=== PATIENT | female | born 1955 | race Caucasian/White ===

== ENCOUNTER 2022-07-30 08:37 | Outpatient (REF) | payer MEDICARE, MEDICAID, SELFPAY ==
--- NOTE | ~2022-07-30 | XR_ITS ---
EXAMINATION: XR PELVIS XR HIP, LEFT CLINICAL INFORMATION: Pain. COMPARISON: None available. TECHNIQUE: AP view of the pelvis. AP and frog-leg lateral views of the left hip. FINDINGS: Bony alignment and mineralization are normal. The acetabular joint spaces are well-maintained. There is moderate peripheral osteophyte formation of the articular surfaces of the left hip, and mild of the right hip. The femoral heads are smooth. There is no acute fracture or dislocation. 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 The sacroiliac joints are symmetric and well-maintained. There are pelvic phleboliths. No foreign body is seen. XR/XR hip LT min 2V IMPRESSION: 1. 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 2. No acute fracture or dislocation is seen. 3. 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
--- NOTE | ~2022-07-30 | US_ITS ---
EXAMINATION: US ABDOMEN COMPLETE CLINICAL INFORMATION: History of liver and renal cyst. COMPARISON: None available. TECHNIQUE: Real-time imaging of the abdominal viscera. FINDINGS: PANCREAS: Normal. ABDOMINAL AORTA: The proximal, mid, and distal segments are normal in caliber. INFERIOR VENA CAVA: Visualized portions are normal. LIVER: The liver is normal in size. The liver contour is normal. Parenchymal echogenicity is normal. Multiple benign-appearing hepatic cysts are present with the largest on the right measuring 0.9 cm and the largest on the left measuring 1.2 cm. No worrisome solid hepatic masses are seen. There is no intrahepatic biliary duct dilatation seen. GALLBLADDER: The gallbladder is physiologically distended without evidence of stones, sludge, polyps, wall thickening or pericholecystic fluid. COMMON BILE DUCT: Normal in caliber measuring 0.4 cm in diameter. RIGHT KIDNEY: No hydronephrosis. No renal calculi or focal parenchymal lesions. The kidney measures 9.1 cm in maximum dimension. LEFT KIDNEY: No hydronephrosis. No renal calculi or focal parenchymal lesions. The kidney measures 10.1 cm in maximum dimension. SPLEEN: Normal. The spleen measures 8.0 cm in maximum dimension. FREE FLUID: None. US/US abdomen complete IMPRESSION: Benign hepatic cysts.
--- NOTE | ~2022-07-30 | XR_ITS ---
EXAMINATION: XR PELVIS XR HIP, LEFT CLINICAL INFORMATION: Pain. COMPARISON: None available. TECHNIQUE: AP view of the pelvis. AP and frog-leg lateral views of the left hip. FINDINGS: Bony alignment and mineralization are normal. The acetabular joint spaces are well-maintained. There is moderate peripheral osteophyte formation of the articular surfaces of the left hip, and mild of the right hip. The femoral heads are smooth. There is no acute fracture or dislocation. 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 The sacroiliac joints are symmetric and well-maintained. There are pelvic phleboliths. No foreign body is seen. XR/XR pelvis 1-2V IMPRESSION: 1. 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 2. No acute fracture or dislocation is seen. 3. 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
--- NOTE | ~2022-07-30 | US_ITS ---
EXAMINATION: US PELVIS CLINICAL INFORMATION: Pelvic pain. COMPARISON: None available. TECHNIQUE: Ultrasound of the pelvis is performed using both transabdominal and transvaginal transducers along with Doppler. Transvaginal imaging is performed due to inadequate visualization transabdominally. FINDINGS: UTERUS: The uterus is anteverted and measures 7.4 x 2.5 x 3.1 cm. The double wall endometrial thickness is 0.3 mm. The uterus is smooth in contour and has normal myometrial echogenicity. A single small right-sided mural fibroid noted measuring 1.2 x 1.1 x 1.3 cm near the fundus. NABOTHIAN CYSTS ARE PRESENT IN THE CERVIX. ADNEXA: Both ovaries are visualized. There is normal color flow to the adnexa. There is no ovarian torsion. There is no pelvic ascites or fluid collection. Right ovary measures 1.7 x 1.0 x 1.2 cm for a volume of 1.1 mL and appears normal. Left ovary measures 6.5 x 4.4 x 5.4 cm for a volume of 80.1 mL which includes a benign simple 6.0 x 3.9 x 4.6 cm ovarian cyst. US/US pelvic and transvaginal IMPRESSION: A cause for the patient's pelvic pain has not been found. Incidental note made of a small right-sided uterine fibroid and a benign simple left ovarian cyst. Given its size in a postmenopausal patient, a follow-up ultrasound is recommended in 6-12 months.
[2022-07-30 10:10] LABS: MANUAL DIFF FLAG NO
[2022-07-30 10:48] LABS: Basophils Absolute Auto 0.1 X10*3/uL (0.0-0.2); Eosinophils Absolute Auto 0.2 X10*3/uL (0.0-0.4); Eosinophils Percent Auto 2.8 % (0-4); Hematocrit 40.1 % (37.0-47.0); Imm Gran Abs Auto 0.01 X10*3/uL (0.00-0.03); Imm Gran Pct Auto 0.2 % (0.0-0.4); Lymphocytes Absolute Auto 2.1 X10*3/uL (1.2-4.9); Lymphocytes Percent Auto 35.6 % (20-40); Mean Corpuscular HGB Conc 32.4 g/dl (31.0-35.0); Mean Corpuscular Hemoglobin 32.3 pg (27.0-33.0); Mean Corpuscular Volume 99.8 fL (80.0-98.0); Mean Platelet Volume 10.6 fL (9.4-12.3); Monocytes Absolute Auto 0.7 X10*3/uL (0.1-1.2); Monocytes Percent Auto 11.2 % (2-11); Neutrophils Absolute Auto 2.9 x10*3/uL (2.0-8.3); Neutrophils Percent Auto 49.2 % (45-73); Platelet Count 321 X10*3/uL (160-400); Red Blood Count 4.02 X10*6/uL (4.20-5.50); Red Cell Distribution Width 12.6 % (11.0-16.0); White Blood Count 5.8 X10*3/uL (4.8-10.8)
[2022-07-30 11:33] LABS: Alanine Aminotransferase 17 U/L (0-31); Albumin Level 4.1 g/dL (3.5-5.0); Alkaline Phosphatase 59 U/L (39-117); Anion Gap 14 (12-20); Aspartate Amino Transferase 29 U/L (5-31); Bilirubin Total 0.9 mg/dL (0.0-1.0); Blood Urea Nitrogen 15 mg/dL (9-16); Calcium 9.3 mg/dL (8.4-10.2); Carbon Dioxide 27 mmol/L (22-29); Chloride 103 mmol/L (96-108); Cholesterol 236 mg/dL; Estimated Glomerular Filt Rate > 60; Glucose Fasting 98 mg/dL (60-99); HDL Cholesterol 106 mg/dL; LDL Cholesterol Calculated 120 mg/dl; Potassium 3.7 mmol/L (3.3-5.1); Sodium 140 mmol/L (135-145); Triglycerides 53 mg/dL
[2022-07-30 11:54] LABS: Free T4 (Free Thyroxine) 1.09 ng/dL (0.71-1.85); Thyroid Stimulating Hormone 1.35 uIU/mL (0.32-4.0)
== END 2022-07-30 08:38 | disposition home or self-care (01) ==
LOC: HO.US 08:37
PROVIDERS: PCP Internal Medicine; Visit Provider Internal Medicine
DX: M25.552 Pain in left hip (principal); E78.5 Hyperlipidemia, unspecified; R53.83 Other fatigue; R10.9 Unspecified abdominal pain
CPT/HCPCS: 36415; 72170; 73502; 76700; 76830; 76856; 80053; 80061; 84439; 84443; 85025

== ENCOUNTER 2024-12-05 09:51 | Outpatient (AMB) | payer MEDICARE, MEDICAID, SELFPAY ==
--- NOTE | 2024-12-05 09:58 | MHC.PC.OV ---
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 Accompanied by: Self / Same As Patient Allergies No Known Allergies Allergy (Verified 12/05/24 10:02) Tobacco use date assessed: 12/05/24 Fall risk assessment: No Falls in past year Last assessed Fall Risk: 12/05/24 Dental Screening Dental Screen Date: 12/05/24 Did you have a dental visit in the last 12 months?: Yes Did you have a dental problem in the last 6 months where you did not have access to dental care?: No Was dental information given to patient?: Patient has dentist [facility] Medical History (Updated 12/05/24 @ 11:10 by Carmine Rodriguez MD) Hyperlipidemia Uterine fibroid Surgical History History of colonoscopy (~05/19/24) Family History (Updated 12/05/24 @ 10:14 by CHRISSIE Aranda) Father Smoker Alcohol abuse Throat cancer Mother Smoker Social History (Updated 12/05/24 @ 10:15 by CHRISSIE Aranda) Housing: House Alcohol intake: current Alcohol intake frequency: a few times a week Patient Tobacco Use Status: Former Tobacco user service: No Current occupational status: retired Cognitive needs: No Hearing needs: No Vision needs: No Questionnaire PHQ-9 Over the last 2 weeks, how often have you been bothered by any of the following problems? 1. Little interest or pleasure in doing things: not at all 2. Feeling down, depressed, or hopeless: not at all 3. Trouble falling or staying asleep, or sleeping too much: not at all 4. Feeling tired or having little energy: not at all 5. Poor appetite or overeating: not at all 6. Feeling bad about yourself - or that you are a failure or have let yourself or your family down: not at all 7. Trouble concentrating on things, such as reading the newspaper or watching television: not at all 8. Moving or speaking so slowly that other people could have noticed. Or the opposite - being so fidgety or restless that you have been moving around a lot more than usual: not at all 9. Thoughts that you would be better off or of hurting yourself in some way: not at all Total score: 0 Source: Developed by Drs. Suleman Bar, Mackenzie Villegas, Brennen Barboza and colleagues, with an educational pahni from [employer]. Thrive Questionnaire Date Thrive assessed: 12/05/24 I am a: Patient What is your living situation today?: I have a steady place to live Within the past 12 months, did the food you bought not last and you didn't have the money to get more?: Never true Within the past 12 months, did you worry whether your food would run out before you got money to buy more?: Never true Do you have trouble paying for medicines?: No Do you have trouble getting transportation to medical appointments?: No Do you have trouble paying your heating and electricity bill?: No Do you have trouble taking care of your child, family member or friend?: No Do you have trouble with day-to-day activities such as bathing, preparing meals, shopping, managing finances, etc.?: No Are you currently unemployed and looking for a job?: No Are you interested in more education?: No Please select the resources that you would like help with: None THRIVE Score: 0 AUDIT C Alcohol Use Questionnaire (AUDIT-C) 1. How often do you have a drink containing alcohol?: 2-3 times a week 2. How many drinks containing alcohol do you have on a typical day when you are drinking?: 1 or 2 3. How often do you have six or more drinks on one occasion?: Never Total Score: 3 CONY-7 AMB Questionnaire CONY-7 Date CONY - 7 assessed: 12/05/24 Feeling nervous, anxious, or on edge: 0 = Not at all Not being able to stop or control worryin = Not at all Worrying too much about different things: 0 = Not at all Trouble relaxin = Not at all Being so restless that it is hard to sit still: 0 = Not at all Becoming easily annoyed or irritable: 0 = Not at all Feeling afraid as if something awful might happen: 0 = Not at all Total CONY-7 score (0-4 normal; 5-9 mild; 10-14 moderate; 15-21 severe): 0 Source: Developed by Drs. Sulmean Bar, Mackenzie Villegas, Brennen Barboza and colleagues, with an educational phani from [employer]. Physical exam (Primary Care) Vital Signs: Last Vital Signs Temp 98.6 F 12/05/24 10:05 Pulse 72 12/05/24 10:05 Resp 14 12/05/24 10:05 BP 118/60 12/05/24 10:05 Pulse Ox 97 12/05/24 10:05 Oxygen Delivery Method Room Air 12/05/24 10:05 BMI result Body Mass Index 23.6 Tobacco/Smoking Status: Tobacco use Status Tobacco use date assessed 12/05/24 12/05/24 10:04 Patient Tobacco Use Status Former Tobacco user 12/05/24 10:16 PHQ-9: PHQ-9 Score PHQ-9: Total score 0 12/05/24 10:04 Thrive Assessment: Date of Thrive Assessment Date Thrive assessed 12/05/24 12/05/24 10:04 Office Procedures Flu Questionnaire Does the patient have a severe egg allergy?: No Does the patient have severe life threatening allergies?: No Does the patient have a fever or illness today?: No Has the patient ever had Guillain-Hudson Syndrome?: No Has the patient ever had any past reaction to a flu shot?: No Immunizations Fluarix [id number] (PF) 45 mcg (15 mcg x 3)/0.5 mL IM syringe Performing Provider: Carmine Rodriguez MD [place] [facility] [place] [facility] Documented (not given) by: CHRISSIE Aranda on 12/05/24 10:17 Reason Not Given: Received Previously Coding Level of Care Code New Pt Level 4 (92301) Complex EM visit Add On G2211 Diagnoses Uterine fibroid D25.9 Hyperlipidemia E78.5 Assessment & Plan Assessment & Plan (1) Uterine fibroid: Code(s): D25.9 - Leiomyoma of uterus, unspecified Category: Medical Plan: [employer] appt made. (2) Hyperlipidemia: Code(s): E78.5 - Hyperlipidemia, unspecified Category: Medical Plan: History of Present Illness - The patient is a 69-year-old female presenting with concerns about small vessel disease, hypercholesterolemia, and a recent ovarian cyst finding. - In June, the patient experienced a transient episode characterized by difficulty speaking and recalling names, accompanied by a slight headache, which resolved after eating. - A CT scan and MRI were performed, revealing small vessel disease, which has caused significant anxiety due to a family history of aneurysms. - The patient has a history of hypercholesterolemia, with recent blood work showing elevated cholesterol levels, prompting lifestyle changes to manage the condition. - An ovarian cyst was discovered during imaging, which is unusual for her age, leading to further evaluation and referral to a interventional radiology rn. - The patient has a past medical history of hypoglycemia, which was severe in her early 20s, but she has not experienced similar symptoms recently. - She reports excessive tearing in cold air and suspects a Demodex infestation due to facial redness and a crawling sensation, for which she has been using tea tree oil. Social History - The patient has made dietary changes, eliminating beef and cheese, to manage her cholesterol levels. - She has a history of severe hypoglycemia in her early 20s, which affected her daily life significantly at the time. Review of Systems - Neurological: Reports transient speech difficulty and headache in June. Denies current neurological symptoms. - Cardiovascular: Denies chest pain or palpitations. - Respiratory: Denies cough or dyspnea. - Gastrointestinal: Denies abdominal pain or changes in bowel habits. - Dermatological: Reports facial redness and crawling sensation, suspecting Demodex infestation. - Ophthalmological: Reports excessive tearing in cold air. Physical Exam General: Cooperative and healthy appearing Nutritional Appearance: Well nourished Orientation/consciousness: Patient oriented x3 Limitations: No limitations Head: Normal to inspection General: Appearance normal, both eyes and all related structures Neck: Normal visual inspection Chest: Normal palpation of entire chest wall Respiratory: N ormal respiratory effort Neurology: Patient oriented x3, noted episode of transient speech difficulty and confusion lasting about 1 hour and 45 minutes, resolved after eating. No current neurological deficits observed. Results - Imaging: CT scan and MRI showed small vessel disease. - Imaging: Ovarian cyst identified on CT scan, requiring follow-up. - Labs: Blood work from October showed elevated cholesterol levels (Total cholesterol 204 mg/dL, LDL 115 mg/dL). Plan - Initiate atorvastatin 10 mg daily to manage hypercholesterolemia. - Referral to gynecology for further evaluation of the ovarian cyst. - Monitor small vessel disease progression with regular follow-up and manage risk factors. - Encourage lifestyle modifications, including dietary changes, to support cardiovascular health. - Recommend seeing an eye doctor for excessive tearing and suspected Demodex infestation. Discussion Notes During the visit, I discussed the patient's elevated cholesterol levels and the benefits of starting atorvastatin to reduce cardiovascular risk. We also reviewed the findings of small vessel disease and the importance of managing risk factors to prevent progression. I recommended a referral to gynecology for further evaluation of the ovarian cyst. Additionally, I advised the patient to see an eye doctor for her excessive tearing and suspected Demodex infestation. We discussed lifestyle modifications, including dietary changes, to support her overall health. Follow-up appointments were planned to monitor her conditions and adjust treatment as necessary. Patient Instructions - Take atorvastatin 10 mg daily as prescribed. - Follow up with the interventional radiology rn for ovarian cyst evaluation. - Schedule an appointment with an eye doctor for excessive tearing and suspected Demodex. - Continue with dietary changes to help manage cholesterol levels. - Return for follow-up appointments to monitor health conditions. 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
[2024-12-05 10:05] VITALS: BP 118/60; PULSE 72; RESP 14; TEMP 37; O2SAT 97; BMI 23.6
--- OUTSIDE RECORDS SUMMARY | 2024-12-05 11:22 | XMS_ITS | Encounter Summary ---
Author Organization [facility] Address [address] [place] [id number] Phone Care Team Providers Care Retail Pharmacist Name Role Phone Sergio Pérez MD Primary Care Provider [phone] Encounter Details Date Type Department Care Team (Late st Contact Info) Description 12/12/2022 Procedure Pass [facility] [address] [place] [address] Social History Tobacco Use Types Packs/Day Years Used Date Smoking Tobacco: Never Assessed Education Answer Date Recorded Are you interested in more education? Not on antonella e 08/13/2022 Are you concerned about learning? Not on file 08/13/2022 No 08/13/2022 No 08/13/2022 Digital Access Answer Date Recorded No 08/13/2022 No 08/13/2022 Reliable internet access at home? Not on file 08/13/2022 Device with a working camera? Not on file Comments No Sex and Gender Information Value Date Recorded Sex Assigned at Female 10/27/2022 10:21 AM EDT Legal Sex Female 11:34 AM EDT Gender Identity Female 10/27/2022 10:21 AM EDT Sexual Orientation Straight 10/27/2022 10 :21 AM EDT documented as of this encounter Plan of Treatment Not on file documented as of this encounter Visit Diagnoses Not on filedocumented in this encounter Care Teams Retail Pharmacist Relationship Specialty Start Date End Date Sergio Pérez MD [address] [place] [address] PCP - General Internal Medicine 08/13/22 documented as of this encounter Additional Source Comments The information contained in this document represents components of the legal health record. It is not the complete legal health record.[facility]
--- OUTSIDE RECORDS SUMMARY | 2024-12-05 11:22 | XMS_ITS | Clinical Summary ---
Author Organization [employer] [facility] Address [address] [place] [phone] Phone Care Team Providers Care Skidder Name Role Phone Sergio Pérez MD Primary Care Provider [phone]- [phone] Allergies Active Allergy Reactions Criticality Noted Date Comments Pollen Extracts 07/13/2024 Medications diclofenac sodium (VOLTAREN) 75 MG EC tablet Take 1 tablet (75 mg total) by mouth 2 (two) times a day. 60 tablet 1 09/01/2022 Active Social History Tobacco Use Types Packs/Day Years Used Date Smoking Tobacco: Never Assessed Tobacco Cessation:Counseling Given: Not Answered Education Answer Date Recorded Are you interested in more education? Not on antonella e 08/13/2022 Are you concerned about learning? Not on file 08/13/2022 No 08/13/2022 No 08/13/2022 Food Answer Date Recorded Within the past 6 months we worried whether our food would run out before we got money to buy more. Never True 07/13/2024 Within the past 6 months the food we bought just didn't last and we didn't have enough money to get more. Never True Residential Stability Answer Date Recor ded What is your housing situation today? I have richar sing 07/13/2024 How many times have you move d in the past 12 months? Zero (I did not move) 07/13/2024 Paying for Meds Answer Date Recorded Do you have trouble paying for medicines? No 07/13/2024 Paying Utility Bills Answer Date Record ed Do you have trouble paying your heating or elect ricity bill? No 07/13/2024 Transportation Answer Date Recorded Has the lack of transportati on kept you from medical appointments or from getting medications? No 07/13/2024 Digital Access Answer Date Recorded No 07/13/2024 Yes 07/13/2024 Do you have reliable internet access at home? Ye s 07/13/2024 Do you have a device (e.g., phone, tablet, computer) with a working camera? Yes 07/13/2024 Intimate Partner Violence Answer Date R ecorded Are you denied basic needs s uch as food, clothing, or medical care? No 07/13/2024 In the past 12 months have y ou been in a relationship with a person who hurts, threatens, or tries to control you? No 07/13/2024 Are you denied basic needs s uch as food, clothing, or medical care? No 07/13/2024 In the past 12 months have y ou been in a relationship with a person who hurts, threatens, or tries to control you? No 07/13/2024 Comments No Sex and Gender Information Value Date Recorded Sex Assigned at Female 10/27/2022 10:21 AM EDT Legal Sex Female 11:34 AM EDT Gender Identity Female 10/27/2022 10:21 AM EDT Sexual Orientation Straight 10/27/2022 10 :21 AM EDT Last Filed Vital Signs Vital Sign Reading Time Taken Comments Blood Pressure 112/57 07/13/2024 5:21 PM EDT Pulse 67 07/13/2024 5:21 PM EDT Temperature 36.6 C (97.9 F) 07/13/2024 5:21 PM EDT Respiratory Rate 16 07/13/2024 5:21 PM EDT Oxygen Saturation 97% 07/13/2024 5:21 PM EDT Inhaled Oxygen Concentration - - Weight 68.5 kg (151 lb 1.6 oz) 07/13/2024 12:37 PM EDT Height 170.2 cm (5' 7 ) 07/13/2024 12:37 PM EDT Body Mass Index 23.67 07/13/2024 12:37 PM EDT Plan of Treatment Health Maintenance Due Date Last Done Comments Adult Td,Tdap Booster 1954 DEPRESSION SCREENING 1966 SMOKING Hx and SMOKELESS TOB ACCO SCREENING 07/13/1967 HEPATITIS C SCREENING 1972 COLONOSCOPY 07/13/1999 FIT TEST 07/13/1999 FOBT 07/13/1999 SIGMOIDOSCOPY 07/13/1999 VIRTUAL COLONOSCOPY 07/13/1999 PNEUMOCOCCAL VACCINES (50+ y ears) (1 of 1 - PCV) 2004 ZOSTER VACCINES (1 of 2) 2004 OSTEOPOROSIS SCREENING INITI AL (ONE-TIME) 07/13/2019 INFLUENZA VACCINE (#1) 2024 COVID-19 VACCINE (1 - 2024-2 6 season) 2024 MAMMOGRAM 02/18/2025 02/18/2023 COLOGUARD 10/18/2026 10/19/2023 COLORECTAL CANCER SCREENING 10/18/2026 RSV VACCINE (1 - 1-dose 75+ series) 2029 LIPID PANEL 07/13/2029 07/13/2024 HEPATITIS A VACCINES Aged Out No long er eligible based on patient's age to complete this topic HIB VACCINES Aged Out No longer eligi ble based on patient's age to complete this topic MENINGOCOCCAL VACCINES (ACWY) Aged Out No longer eligible based on patient's age to complete this topic MENINGOCOCCAL VACCINES (B) Aged Out N o longer eligible based on patient's age to complete this topic Medical Devices Not on file Procedures Procedure Name Priority Date/Time Associated Diagnosis Comments LIPID PANEL STAT 07/13/2024 1:40 PM EDT BI MAMMOGRAM SCREENING WITH TOMOSYNTHESIS WITH CAD (BILATERAL) Routine 02/18/2023 12:57 PM EST Breast screening from Last 3 Months or Most Recently Relevant to Health Maintenance Results * (ABNORMAL) Lipid panel (07/13/2024 1:40 PM EDT) HDL 98 mg/dL [facility] Comment: Interpretation <40 mg/dL: Low HDL cholesterol (major risk factor for CHD) Greater than or equal to 60 mg/dL: High HDL cholesterol ( negative risk factor for CHD) HDL - cholesterol is affected by a number of factors, e.g. smoking, excerise, hormones, sex and age. CHOLESTEROL 218 0 - 240 mg/dL [facility] TRIGLYCERIDES 111 30 - 160 mg/dL [facility] LDL 98 50 - 129 mg/dL [facility] Comment: LDL levels in terms of risk for coronary heart disease: <100 mg/dL: Optimal 100-129 mg/dL: Near or above optimal 130-159 mg/dL: Borderline high 160-189 mg/dL: High >190 mg/dL: Very High CARDIAC RISK RATIO 2.2(L) 3.3 - 4.4 [facility] Blood 07/13/2024 1:40 PM EDT 07/13/2024 1:45 PM EDT us Pauline León PA-C LAB BLOOD ORDERABLES Final Result Performing Organization Address City/State/[facility] Co de Phone Number [facility] [address] [place] [address] * BI MAMMOGRAM SCREENING WITH TOMOSYNTHESIS WITH CAD (BILATERAL) (02/18/2023 12:57 PM EST) Anatomical Region Laterality Modality Breast Left, Breast Right, Breast Bilateral Bila teral Mammography 02/26/2023 6:12 PM EST Impressions 03/02/2023 8:31 AM EST No mammographic signs of malignancy. Annual screening is recommended. BI-RADS CATEGORY: 2 - Benign finding. DENSITY: There are scattered fibroglandular densities. Narrative 03/02/2023 8:31 AM EST Bilateral mammography is performed in conjunction with computed aided detection. 3-D tomography along with 2-D C view imaging was also performed. No previous mammograms for comparison. This will be a baseline exam. No suspicious masses, areas of architectural distortion or suspicious microcalcifications. Small coarse calcification in the posterior slight outer left breast with benign characteristics. Procedure Note Naveen Fulton MD - 03/02/2023 Bilateral mammography is performed in conjunction with computed aideddetection. 3-D tomography along with 2-D C view imaging was alsoperformed. No previous mammograms for comparison. This will be a baseline exam. No suspicious masses, areas of architectural distortion or suspiciousmicrocalcifications. Small coarse calcification in the posterior slightouter left breast with benign characteristics. IMPRESSION: No mammographic signs of malignancy. Annual screening is recommended. BI-RADS CATEGORY: 2 - Benign finding. DENSITY: There are scattered fibroglandular densities. Sergio Pérez MD IMG MG EXAMS Final Resu lt from Last 3 Months or Most Recently Relevant to Health Maintenance Insurance [address] [place], [place] [id number] MEDICARE PART A & B [facility] MEDICARE REPLACEMENT [address] [place] [id number] MEDICARE PART A & B Member Subscriber Plan / Payer (Ef fective 2019-Present) Name:Sindy Blanco Member ID:[id number] Relation to Subscriber:Self Name:Sindy Blacno Subscriber ID:[id number] Payer ID:[id number] Group ID:Not on file Type:Medicare Address: [employer] [address] MEDICARE REPLACEMENT ROBERT GARCIA [facility] MEDICARE PART A & B MEDICARE REPLACEMENT ROBERT GARCIA [facility] [address] [place] [address] MEDICARE PART A & B [facility] MEDICARE REPLACEMENT ROBERT GARCIA [facility] [address] [place] [address] MEDICARE PART A & B [facility] MEDICARE REPLACEMENT MEDICARE PART A & B [facility] MEDICARE REPLACEMENT Care Teams Skidder Relationship Specialty Start Date End Date Sergio Pérez MD [address] [place] [id number] PCP - General Internal Medicine 08/13/22 Additional Source Comments The information contained in this document represents components of the legal health record. It is not the complete legal health record.[facility]
--- OUTSIDE RECORDS SUMMARY | 2024-12-05 11:22 | XMS_ITS | Encounter Summary ---
Author Organization [email or web address] [facility] Address [address] [place] [address] [place] [phone] Phone Care Team Providers Care Drafter Directional Survey Name Role Phone Sergio Pérez MD Primary Care Provider [phone]- [phone] Encounter Details Date Type Department Care Team (Late st Contact Info) Description 07/13/2024 Procedure Pass [facility], [facility] Scan - [facility] [place] [address] [place] [address] Social History Tobacco Use Types Packs/Day Years [...] your housing situation today? I have richar man 07/13/2024 How many times have you move [...] AM EDT documented as of this encounter Functional Status * Calculated C-SSRS Risk Score (Lifetime/Recent) Answer Date of Assessment Author No Risk Indicated 07/13/2024 12:38 PM EDT Ashlie Casas RN * [place] Suicide Severity Rating Scale (Screener/Recent Self-Report) Question Answer Date of Assessment Author 1. Wish to be (Past 1 Month) No 025 12:38 PM EDT Ashlie Casas, BRANDEN 2. Non-Specific Active Suici sina Thoughts (Past 1 Month) No 07/13/2024 12:38 PM EDT Ashlie Casas , BRANDEN 6. Suicidal Behavior (Lifetime) No 12:38 PM EDT Ashlie Casas, RN documented as of this encounter Plan of Treatment Not on file documented as of this encounter Visit Diagnoses Not on filedocumented in this encounter Care Teams Drafter Directional Survey Relationship Specialty Start Date End Date Sergio Pérez MD [address] [place] [address] PCP - General Internal Medicine 08/13/22 documented as of this encounter Additional Source Comments The information contained in this document represents components of the legal health record. It is not the complete legal health record.[facility]
--- OUTSIDE RECORDS SUMMARY | 2024-12-05 11:22 | XMS_ITS | Encounter Summary ---
Author Organization [facility] Address [address] [place] [address] Phone Care Team Providers Care Supply Chain Vice President Name Role Phone Sergio Pérez MD Primary Care Provider [phone]- [phone] Encounter Details Date Type Department Care Team (Latest Contact Info) Description 12/12/2022 Transcribe Orders Virtual Department [address] [place] [address] Sergio Pérez MD [address] [place] [address] Breast screening (Primary Dx) Social History Tobacco Use Types Packs/Day Years [...] a working camera? Not on file Comments Unknown Sex and Gender Information Value Date Recorded Sex Assigned at Female 10/27/2022 10:21 AM EDT Legal Sex Female 11:34 AM EDT Gender Identity Female 10/27/2022 10:21 AM EDT Sexual Orientation Straight 10/27/2022 10 :21 AM EDT documented as of this encounter Plan of Treatment Not on file documented as of this encounter Results * BI MAMMOGRAM SCREENING WITH TOMOSYNTHESIS WITH [...] MD IMG MG EXAMS Final Resu lt documented in this encounter Visit Diagnoses Diagnosis Breast screening- Primary Breast screening, unspecified Breast screening Breast screening, unspecified documented in this encounter Care Teams Supply Chain Vice President Relationship Specialty Start Date End Date Sergio Pérez MD [address] [place] [id number] PCP - General Internal Medicine 08/13/22 documented as of this encounter Additional Source Comments The information contained in this document represents components of the legal health record. It is not the complete legal health record.[facility]
== END 2024-12-05 11:01 | disposition home or self-care (01) ==
PROVIDERS: PCP Internal Medicine; Visit Provider Internal Medicine
DX: D25.9 Leiomyoma of uterus, unspecified (principal); E78.5 Hyperlipidemia, unspecified; Z23 Encounter for immunization

== ENCOUNTER → 2024-12-05 09:51 | Outpatient (BNVA) | payer OTHER, SELFPAY | PROVIDERS: PCP Internal Medicine; Visit Provider Internal Medicine | DX: D25.9 Leiomyoma of uterus, unspecified (principal); E78.00 Pure hypercholesterolemia, unspecified; N83.209 Unspecified ovarian cyst, unspecified side; Z28.89 Immunization not carried out for other reason | CPT/HCPCS: 90471; 96127; 99202 ==